=== PATIENT | male | born 1940 | race Caucasian/White ===

== ENCOUNTER 2018-07-15 17:52 | Emergency (ER) | payer OTHER ==
--- NOTE | 2018-07-15 18:38 | EDPHYS ---
Physician Documentation [facility] Name: Wander Macias Age: 77 yrs Sex: Male : 1940 Arrival Date: 07/15/2018 Time: 17:57 Bed 24 Private MD: ED Physician Levon Leigh HPI: 07/15 18:31 This 77 yrs old Male presents to ER via Ambulatory with complaints of gs Numbness Of Hand. 18:31 The patient presents to the emergency department with paresthesias of the left upper gs extremity, that is mild. Onset: The symptoms/episode began/occurred 1 month(s) ago. Associated signs and symptoms: Pertinent negatives: dizziness, headache. Severity of symptoms: At their worst the symptoms were moderate in the emergency department the symptoms have improved mildly. The patient has experienced similar episodes in the past, several times. The patient has been recently seen by a physician: the patient's primary care provider, with similar presenting complaints, SEEN NEUROLOGY HAD NECK IMAGING, TOLD ARTHRITIS. Historical: - Allergies: 18:24 NKA; iw - Home Meds: 18:24 carbidopa-levodopa 25-100 mg Oral tab 3 times per day [Active]; iw - PMHx: 18:24 Parkinsons; iw - PSHx: 18:24 None; iw - Immunization history:: Adult Immunizations unknown. - Social history:: Smoking status: Patient uses tobacco products, chewing tobacco. - Ebola Screening: : Patient negative for fever greater than or equal to 101.5 degrees Fahrenheit, and additional compatible Ebola Virus Disease symptoms Patient denies exposure to infectious person Patient denies travel to an Ebola-affected area in the 21 days before illness onset No symptoms or risks identified at this time. ROS: 18:31 All other systems are negative. gs Exam: 18:31 Cardiovascular: Regular rate and rhythm with a normal S1 and S2. No gallops, murmurs, gs or rubs. Normal PMI, no JVD. No pulse deficits. Respiratory: Lungs have equal breath sounds bilaterally, clear to auscultation and percussion. No rales, rhonchi or wheezes noted. No increased work of breathing, no retractions or nasal flaring. 18:31 Constitutional: The patient appears alert, awake. 18:31 Neck: Exam negative for acute changes. 18:31 Musculoskeletal/extremity: ROM: no acute changes, Circulation is intact in all extremities. Tingling of extremity. 18:31 Neuro: Motor: is normal, Sensation: pin prick testing is normal. Vital Signs: 18:24 BP 133 / 74; Pulse 66; Resp 16 S; Temp 98.4(TE); Pulse Ox 100% on R/A; Weight 58.06 kg; iw Height 5 ft. 4 in. (162.56 cm); 18:24 Body Mass Index 21.97 (58.06 kg, 162.56 cm) iw MDM: 18:27 Patient medically screened. gs 18:31 Data reviewed: vital signs, nurses notes. gs Administered Medications: No medications were administered Disposition: 07/15/18 18:37 Discharged to Home. Impression: Mononeuropathies of upper limb. - Condition is Stable. - Discharge Instructions: Focal Neuropathy. - Medication Reconciliation Form, Thank You Letter, Antibiotic Education, Prescription Opioid Use form. - Follow up: Private Physician; When: 2 - 3 days; Reason: Re-evaluation by your physician. Signatures: Judy Hutchinson RN RN aj Williams, Irene, RN RN iw Levon Leigh MD MD Corrections: (The following items were deleted from the chart) 19:11 18:37 07/15/2018 18:37 Discharged to Home. Impression: Mononeuropathies of upper limb. aj Condition is Stable. Forms are Medication Reconciliation Form, Thank You Letter, Antibiotic Education, Prescription Opioid Use. Follow up: Private Physician; When: 2 - 3 days; Reason: Re-evaluation by your physician.
--- NOTE | 2018-07-15 18:38 | ER ---
Nurse's Notes [facility] Name: Wander Macias Age: 77 yrs Sex: Male : 1940 Arrival Date: 07/15/2018 Time: 17:57 Bed 24 Private MD: Diagnosis: Mononeuropathies of upper limb Presentation: 07/15 18:21 Presenting complaint: Patient states: has had numbness, tingling in left hand, feels iw like his hand is asleep, moving to right hand now, s/s started one month ago, worse today, hx of Parkinson's, has been seen at [facility] for symptoms and was told he had a bone spur in his neck. Transition of care: patient was not received from another setting of care. Onset of symptoms was June 2018. Risk Assessment: Do you want to hurt yourself or someone else? Patient reports no desire to harm self or others. Initial Sepsis Screen: Does the patient meet any 2 criteria? No. Patient's initial sepsis screen is negative. Does the patient have a suspected source of infection? No. Patient's initial sepsis screen is negative. Care prior to arrival: None. 18:21 Method Of Arrival: Ambulatory iw 18:21 Acuity: LISSA 3 iw Historical: - Allergies: 18:24 NKA; iw - Home Meds: 18:24 carbidopa-levodopa 25-100 mg Oral tab 3 times per day [Active]; iw - PMHx: 18:24 Parkinsons; iw - PSHx: 18:24 None; iw - Immunization history:: Adult Immunizations unknown. - Social history:: Smoking status: Patient uses tobacco products, chewing tobacco. - Ebola Screening: : Patient negative for fever greater than or equal to 101.5 degrees Fahrenheit, and additional compatible Ebola Virus Disease symptoms Patient denies exposure to infectious person Patient denies travel to an Ebola-affected area in the 21 days before illness onset No symptoms or risks identified at this time. Screenin:04 Abuse screen: Denies threats or abuse. Denies injuries from another. Nutritional aj screening: No deficits noted. Tuberculosis screening: No symptoms or risk factors identified. Fall Risk None identified. Assessment: 19:04 General: Appears in no apparent distress. comfortable, Behavior is calm, cooperative, aj appropriate for age. Pain: Denies pain. Neuro: Level of Consciousness is awake, alert, obeys commands, Oriented to person, place, time, situation, Appropriate for age. Neuro: Reports numbness in left hand. Respiratory: Airway is patent Respiratory effort is even, unlabored, Respiratory pattern is regular, symmetrical. GI: Abdomen is flat, non-distended. Derm: Skin is intact, is healthy with good turgor, Skin is pink, warm \T\ dry. normal. Vital Signs: 18:24 BP 133 / 74; Pulse 66; Resp 16 S; Temp 98.4(TE); Pulse Ox 100% on R/A; Weight 58.06 kg; iw Height 5 ft. 4 in. (162.56 cm); 18:24 Body Mass Index 21.97 (58.06 kg, 162.56 cm) ED Course: 17:57 Patient arrived in ED. mr 18:08 Judy Hutchinson, RN is Primary Nurse. aj 18:12 Levon Leigh MD is Attending Physician. 18:24 Triage completed. iw 18:24 Arm band placed on. iw 19:04 Patient has correct armband on for positive identification. aj 19:04 No provider procedures requiring assistance completed. Patient did not have IV access aj during this emergency room visit. Administered Medications: No medications were administered Outcome: 18:37 Discharge ordered by . gs 19:04 Discharged to home ambulatory, with family. aj 19:04 Condition: good 19:04 Discharge instructions given to patient, Instructed on discharge instructions, follow up and referral plans. Demonstrated understanding of instructions, follow-up care. 19:11 Patient left the ED. aj Signatures: Judy Hutchinson RN RN aj Rivera, Mary Lawanda Barragan RN RN Levon Leigh MD MD
[2018-07-15 19:39] VITALS: BP 133/74; TEMP 98.4; O2SAT 100
== END 2018-07-15 19:11 | disposition home or self-care (01) ==
LOC: ER 17:52
DX: G56.90 Unspecified mononeuropathy of unspecified upper limb (principal); G20 Parkinson's disease; Z79.899 Other long term (current) drug therapy; F17.220 Nicotine dependence, chewing tobacco, uncomplicated
CPT/HCPCS: 99281